=== PATIENT | male | born 1935 | race Caucasian/White ===

== ENCOUNTER 2018-01-16 00:33 | Emergency (ER) | payer OTHER, BC ==
[~2018-01-16] VITALS: Ht 188 cm; Wt 112.5 kg
[2018-01-16 00:44] VITALS: BP_SYST 133
[2018-01-16] MEDS ORDERED: BACITRACIN 1 GM OINT TP ONE (02:00)
[2018-01-16] MEDS ORDERED: DIPH-TET-PERTUS Vaccine 0.5 ML VIAL (ADACEL) I.M. ONE ×2 (02:00→02:21)
[2018-01-16] MEDS ORDERED: ACETAMINOPHEN 500 MG TABLET PO ONE (02:15)
[2018-01-16 03:12] VITALS: BP_SYST 133
== END 2018-01-16 03:16 | disposition left against medical advice (07) ==
LOC: SED 00:33
DX: S00.211A Abrasion of right eyelid and periocular area, initial encounter (principal); W10.9XXA Fall (on) (from) unspecified stairs and steps, initial encounter; Y93.89 Activity, other specified; Y92.520 Airport as the place of occurrence of the external cause; Y99.8 Other external cause status
CPT/HCPCS: 70450-TC; 73564; 90715; 99284